=== PATIENT | female | born 1955 | race Caucasian/White ===

== ENCOUNTER 2022-02-03 08:30 | Emergency (ER) | payer OTHER, SELFPAY ==
[2022-02-03 08:38] VITALS: BP 154/60; PULSE 54; RESP 16; TEMP 36.2; O2SAT 100
--- NOTE | 2022-02-03 08:57 | ED.DIZZY ---
HPI - Dizziness General Chief Complaint: Dizziness Stated Complaint: Vomiting Time Seen by Provider: 02/03/22 08:58 Source: patient and RN notes reviewed Mode of arrival: ambulatory Limitations: no limitations History of Present Illness HPI Narrative: 66-year-old female presented for complaint of vomiting and dizziness, onset last night. She states she has had intermittent episodes of nausea and vomiting for a while, was seen by her PCP on 01/11 and was told she had pancreas problems and needs an x-ray, but states she has not yet had the imaging because her [id number] . Endorses a history of constipation and stomach issues and states she was diabetic but has come off of the medications. She denies chest pain, heart racing, abdominal pain, hematemesis, hematochezia or melena, fevers or chills. Related Data Home Medications Medication Instructions Recorded Confirmed atorvastatin 40 mg tablet 40 mg PO DAILY 05/01/19 02/03/22 hydrochlorothiazide 25 mg tablet 25 mg PO DAILY 05/01/19 02/03/22 albuterol sulfate 90 mcg/actuation 2 puff inhalation Q4-6H PRN 02/03/22 02/03/22 aerosol inhaler Shortness Of Breath Or Wheezing losartan 100 mg tablet 100 mg PO DAILY 02/03/22 02/03/22 Allergies Allergy/AdvReac Type Severity Reaction Status Date / Time acetaminophen Allergy Unknown Rash Verified 02/03/22 08:51 aspirin Allergy Unknown Rash Verified 02/03/22 08:51 clarithromycin Allergy Unknown Difficulty Verified 02/03/22 08:51 Breathing propoxyphene Allergy Unknown Rash Verified 02/03/22 08:51 quetiapine Allergy Unknown Rash Verified 02/03/22 08:51 sertraline Allergy Unknown Rash Verified 02/03/22 08:51 Review of Systems Review of Systems: CONSTITUTIONAL: Denies body aches, fever, chills ENT: Denies rhinorrhea, congestion CARDIOVASCULAR: Denies chest pain, palpitations, or edema. RESPIRATORY: Denies cough or dyspnea. GASTROINTESTINAL: Endorses nausea, vomiting. Denies abdominal pain, hematochezia, melena, hematemesis GENITOURINARY: Denies dysuria, hematuria, or CVA tenderness. NEUROLOGIC: Denies headache, reports dizziness All systems reviewed & are unremarkable except as noted in HPI and below PMFSH Past Medical History Medical History Bipolar 1 disorder Hyperlipidemia Hypertension Surgical History Surgical History History of colposcopy Social History Social History Smoking status: Never smoker Comments At time of signature, I have reviewed and agree with nursing past medical, surgical, social and family history unless otherwise noted. Please see nursing chart for further information. There is no relevant family history pertinent to the presenting complaint Exam Narrative: GENERAL: ill-appearing, no acute distress. EYES: EOMI. Conjunctivae normal. ENT: Mucous membranes pink and moist. CHEST: Clear to auscultation. HEART: Regular rate and rhythm. No murmur appreciated. Normal peripheral pulses. ABDOMEN: Tender abdomen with deep palpation to bilateral lower quadrants; No guarding, abd soft, nondistended, normal active bowel sounds. SKIN: Warm, dry, no rash. Capillary refill normal. Normal skin turgor. NEURO: No focal deficits. Alert and oriented x3. PSYCH: Normal affect. Course Course Emergency Course: Patient is aware of diagnosis, understands and agrees to treatment plan. Anticipatory guidance given. Patient agrees to follow-up as directed and is aware of reasons to seek care at the emergency department. Portions of this record may have been created with voice recognition software Level of Care: Express Care Visit Vital Signs Vital signs: Vital Signs Temperature 97.2 F L 02/03/22 08:38 Pulse Rate 54 L 02/03/22 08:38 Respiratory Rate 16 02/03/22 08:38 Blood Pressure 154/60 H 02/03/22 08:38 Pulse
[2022-02-03] MEDS: ONDANSETRON HCL ODT 4 MG TABLET SUBLINGUAL (09:12)
[2022-02-03 09:25] LABS: Glucose Point of Care 150 mg/dl (65-105)
[2022-02-03] MEDS: MECLIZINE HCL 25 MG TABLET PO (09:52)
== END 2022-02-03 10:35 | disposition home or self-care (01) ==
PROVIDERS: Emergency Provider Nurse Practitioner Family; PCP Family Medicine
DX: H81.10 Benign paroxysmal vertigo, unspecified ear (principal); E78.5 Hyperlipidemia, unspecified; I10 Essential (primary) hypertension
CPT/HCPCS: 82948; 99213; A9270; G0463